=== PATIENT | female | born 1995 | race Hispanic/Latino ===

== ENCOUNTER 2019-07-25 18:34 | Emergency (ER) | payer SELFPAY | END 2019-07-25 20:00 | disposition home or self-care (01) | LOC: ERS 18:34 | DX: S30.814A Abrasion of vagina and vulva, initial encounter (principal); F41.9 Anxiety disorder, unspecified; Z87.891 Personal history of nicotine dependence; X58.XXXA Exposure to other specified factors, initial encounter | CPT/HCPCS: 99283 ==

== ENCOUNTER 2020-01-12 15:45 | Outpatient (CLI) | payer BC ==
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
== END 2020-01-12 15:46 | disposition home or self-care (01) ==
LOC: BICRAD 15:45
DX: S99.921A Unspecified injury of right foot, initial encounter (principal); M79.89 Other specified soft tissue disorders

== ENCOUNTER 2020-08-16 15:51 | Emergency (ER) | payer BC, OTHER ==
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
[2020-08-16] MEDS ORDERED: Ketorolac Tromethamine 30 MG/ML VIAL ONE (17:00)
== END 2020-08-16 17:50 | disposition home or self-care (01) ==
LOC: ERS 15:51
DX: S16.1XXA Strain of muscle, fascia and tendon at neck level, initial encounter (principal); S29.012A Strain of muscle and tendon of back wall of thorax, initial encounter; T14.8XXA Other injury of unspecified body region, initial encounter; F32.9 Major depressive disorder, single episode, unspecified; F41.9 Anxiety disorder, unspecified; F17.210 Nicotine dependence, cigarettes, uncomplicated; V89.2XXA Person injured in unspecified motor-vehicle accident, traffic, initial encounter
CPT/HCPCS: 71250; 72125; 96372; J1885